=== PATIENT | female | born 1995 | race Caucasian/White ===

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

== ENCOUNTER → 2017-03-05 | Outpatient (CLI) | payer OTHER, MEDICAID ==
[2017-03-05 11:44] LABS: HCT 40.3 % (34.0-46.0); HGB 12.5 gm/dL (11.4-16.0); MCH 26.5 pg (25.0-35.0); MCV 85.6 fL (80.0-100.0); Mean Platelet Volume 7.7; Platelet Count 286 k/uL (150-450); RBC 4.71 m/uL (3.80-5.40); RDW 15.5 % (11.5-15.5)
== END | disposition home or self-care (01) ==
LOC: LABWHC1 10:03
PROVIDERS: ATTEND Obstetrics & Gynecology
DX: Z34.82 Encounter for supervision of other normal pregnancy, second trimester (principal); Z3A.00 Weeks of gestation of pregnancy not specified
CPT/HCPCS: 36415; 82950; 85027

== ENCOUNTER 2017-06-11 06:00 | Inpatient (IN) | payer MEDICAID, OTHER ==
[2017-06-11] MEDS ORDERED: OXYTOCIN 20 UNITS/1000 ML NS 1,000 ML IV SCH ×2 (06:12→21:15)
[2017-06-11] MEDS ORDERED: TERBUTALINE 1 MG/ML VIAL SQ PRN (06:12)
[2017-06-11] MEDS ORDERED: LIDOCAINE 1% (PF) 10 MG/ML (30 ML SDV) SQ PRN (06:12)
[2017-06-11] MEDS ORDERED: OXYTOCIN 10 UNIT/ML 1 ML VIAL IM PRN (06:12)
[2017-06-11] MEDS ORDERED: AMPICILLIN 2,000 MG in SODIUM CHLORIDE 0.9% 100 ML IVPB STA (06:12)
[2017-06-11] MEDS ORDERED: CARBOPROST TROMETHAMINE 250 MCG/ML 1 ML AMP IM PRN (06:12)
[2017-06-11] MEDS ORDERED: METHYLERGONOVINE 0.2 MG/ML 1 ML AMP IM PRN (06:12)
[2017-06-11] MEDS ORDERED: AMPICILLIN 1,000 MG in SODIUM CHLORIDE 0.9% 50 ML IVPB SCH (06:15)
[2017-06-11 06:18] VITALS: BMI 35.9
[2017-06-11] MEDS: LACTATED RINGERS 1,000 ML IV SCH ×3 (06:20→14:05)
[2017-06-11 06:30] LABS: Basophils % (A) 0 %; Eosinophils # (A) 0.1 k/uL (0-0.7); Eosinophils % (A) 1 %; HCT 37.1 % (34.0-46.0); HGB 12.1 gm/dL (11.4-16.0); Hypochromasia Slight; Lymphocytes # (A) 3.5 k/uL (1.0-4.8); Lymphocytes % (A) 22 %; MCH 25.2 pg (25.0-35.0); MCHC 32.7 g/dL (31.0-37.0); MCV 77.3 fL (80.0-100.0); Mean Platelet Volume 7.3; Monocytes # (A) 0.6 k/uL (0-1.0); Monocytes % (A) 4 %; Neutrophils # (A) 11.2 k/uL (1.3-7.7); Neutrophils % (A) 71 %; Platelet Count 335 k/uL (150-450); RBC 4.81 m/uL (3.80-5.40); RDW 13.8 % (11.5-15.5); WBC 15.9 k/uL (4.0-11.0)
--- NOTE | 2017-06-11 08:29 | P.HPOB ---
History of Present Illness H&P Date: 06/11/17 Chief Complaint: Induction of labor 22-year-old presents at 39 weeks and 1 day for induction of labor. Her cervix is 1-2 cm dilated, 70% effaced, -2 station. She is rui regularly. heart tones 115-120 with moderate variability and reactive. Review of Systems All systems: negative Constitutional: Denies chills, Denies fever Eyes: denies blurred vision, denies pain Ears, nose, mouth and throat: Denies headache, Denies sore throat Cardiovascular: Denies chest pain, Denies shortness of breath Respiratory: Denies cough Gastrointestinal: Denies abdominal pain, Denies diarrhea, Denies nausea, Denies vomiting Genitourinary: Denies dysuria, Denies hematuria Musculoskeletal: Denies myalgias Integumentary: Denies pruritus, Denies rash Neurological: Denies numbness, Denies weakness Psychiatric: Denies anxiety, Denies depression Endocrine: Denies fatigue, Denies weight change Past Medical History Past Medical History: No Reported History Additional Past Medical History / Comment(s): Obstetrics history: First was a spontaneous . This is her second and she's had care with me since 10 weeks gestation. Blood type is A+, antibodies negative, rubella immune, HIV nonreactive, hepatitis B negative, treponema antibody negative. Normal 1 hour glucose tolerance test. GBS positive. History of Any Multi-Drug Resistant Organisms: None Reported Past Surgical History: No Surgical Hx Reported Additional Past Surgical History / Comment(s): wisdom removal Past Anesthesia/Blood Transfusion Reactions: No Reported Reaction Past Psychological History: Anxiety, Depression Smoking Status: Former smoker Past Alcohol Use History: None Reported Past Drug Use History: None Reported - Past Family History Father Family Medical History: Diabetes Mellitus Medications and Allergies Home Medications Medication Instructions Recorded Confirmed Type Pnv,Calcium 72/Iron/Folic Acid 1 tab PO DAILY 06/11/17 06/11/17 History [ Plus Tablet] Allergies Allergy/AdvReac Type Severity Reaction Status Date / Time No Known Allergies Allergy Verified 06/11/17 06:10 Exam Osteopathic Statement: *. No significant issues noted on an osteopathic structural exam other than those noted in the History and Physical/Consult. - Vital Signs Vital signs: Vital Signs Temp Pulse Resp BP Pulse Ox 06/11/17 06:13 96.5 F L 105 H 19 137/74 97 Intake and Output 06/10/17 06/11/17 06/11/17 22:59 06:59 14:59 Other: Weight 86.183 kg Heart: Regular rate and rhythm Lungs: Clear to auscultation bilaterally Abdomen: Soft, nontender Extremities: Negative Homans sign Results Result Diagrams: 06/11/17 06:20 Abnormal Lab Results - Last 24 Hours (Table) 06/11/17 Range/Units 06:20 WBC 15.9 H (4.0-11.0) k/uL MCV 77.3 L (80.0-100.0) fL Neutrophils # 11.2 H (1.3-7.7) k/uL Assessment and Plan (1) Normal labor Current Visit: Yes Status: Acute Code(s): O80 - ENCOUNTER FOR FULL-TERM UNCOMPLICATED DELIVERY; Z37.9 - OUTCOME OF DELIVERY, UNSPECIFIED SNOMED Code(s ): 67246319 Plan: 1. Induction of labor with amniotomy and Pitocin 2. Anticipate normal vaginal delivery
[2017-06-11] MEDS ORDERED: BUTORPHANOL 1 MG/ML 1 ML VIAL IV PRN (09:39)
[2017-06-11] MEDS: AMPICILLIN 1,000 MG in SODIUM CHLORIDE 0.9% 50 ML IVPB SCH ×3 (11:03→19:12)
[2017-06-11] MEDS ORDERED: ePHEDrine SULFATE/0.9% NACL/PF 50 MG/5 ML SYRINGE IV ONE (13:35)
[2017-06-11] MEDS ORDERED: SODIUM CHLORIDE 0.9% 100 ML BAG ONE ×2 (13:35→20:28)
[2017-06-11] MEDS ORDERED: BUPIVACAINE (PF) 0.25% 30 ML VIAL ONE ×2 (13:35→20:28)
[2017-06-11] MEDS ORDERED: fentaNYL (PF) 50 MCG/ML 5 ML AMP ONE ×2 (13:35→20:28)
[2017-06-11] MEDS ORDERED: BUPIVACAINE (PF) 0.25% 25 ML, fentaNYL (PF) 200 MCG in SODIUM CHLORIDE 0.9% 71 ML EPIDURAL ONE (14:02)
[2017-06-11] MEDS ORDERED: ceFAZolin IN SWFI 2 GM/20 ML SYRINGE IVP STA (19:53)
[2017-06-11] MEDS ORDERED: CITRIC ACID-SODIUM CITRATE 15 ML CUP PO ONE (19:55)
[2017-06-11] MEDS ORDERED: OXYTOCIN 10 UNIT/ML 1 ML VIAL ONE (20:28)
[2017-06-11] MEDS ORDERED: KETOROLAC 30 MG/ML 1 ML VIAL ONE (20:28)
[2017-06-11] MEDS ORDERED: ONDANSETRON 4 MG/2 ML VIAL ONE (20:28)
[2017-06-11] MEDS ORDERED: METOCLOPRAMIDE 5 MG/ML 2 ML VIAL IVP PRN ×2 (21:06→21:11)
[2017-06-11] MEDS ORDERED: diphenhydrAMINE 25 MG CAP PO PRN (21:06)
[2017-06-11] MEDS ORDERED: NALOXONE 0.4 MG/ML 1 ML VIAL IV PRN ×2 (21:06→21:11)
[2017-06-11] MEDS ORDERED: KETOROLAC 30 MG/ML 1 ML VIAL IVP PRN ×2 (21:06→21:11)
[2017-06-11] MEDS ORDERED: diphenhydrAMINE 50 MG CAP PO PRN (21:06)
[2017-06-11] MEDS ORDERED: SIMETHICONE 80 MG CHEWABLE PO PRN (21:06)
[2017-06-11] MEDS ORDERED: diphenhydrAMINE 50 MG/ML 1 ML VIAL IVP PRN ×3 (21:06→21:11)
[2017-06-11] MEDS ORDERED: ACETAMINOPHEN TAB 325 MG TAB PO PRN (21:06)
[2017-06-11] MEDS ORDERED: LANOLIN CREAM 5 GM TUBE TOPICAL PRN (21:06)
[2017-06-11] MEDS ORDERED: ONDANSETRON 4 MG/2 ML VIAL IVP PRN ×2 (21:06→21:11)
[2017-06-11] MEDS ORDERED: ZOLPIDEM 5 MG TAB PO PRN (21:06)
[2017-06-11] MEDS ORDERED: MORPHINE SULFATE 4MG/4ML SYRG IVP PRN (21:11)
--- NOTE | 2017-06-11 21:13 | P.OP ---
Date of Procedure: 06/11/17 Preoperative Diagnosis: 1. at 39 weeks 1 day 2. failure to progress 3. variable decelerations in the heart rate Postoperative Diagnosis: 1. at 39 weeks 1 day 2. failure to progress 3. variable decelerations in the heart rate Procedure(s) Performed: Primary low transverse Anesthesia: epidural Surgeon: Lee Ann Dennison Screedman #1: Christophe Galvez Estimated Blood Loss (ml): 300 IV fluids (ml): 600 Urine output (ml): 100 Pathology: other (placenta) Condition: stable Disposition: floor Indications for Procedure: 22-year-old G 2 P0 presented at 39 weeks and 1 day for induction of labor. Her cervix was 1-2 cm dilated, 70% effaced, -2 station. Amniotomy was performed at 7:55 AM after Pitocin had been started and she was rui every few minutes. When she was uncomfortable and making cervical change she did get an epidural. She was 5 cm dilated at 3 PM and did not make any further cervical change despite adequate contractions for several hours. Around 7:45 PM her cervix was checked again and still 5 cm, 90% effaced, -2 station. heart tones were showing minimal variability with decelerations in the heart rate down to 60 bpm mirroring contractions with good return to baseline. Informed consent was obtained and section was called. Operative Findings: Viable male, Apgars 9, 9, weight 6 lbs. 5 oz. Normal uterus tubes and ovaries Description of Procedure: Patient was taken to the operating room where epidural anesthesia was found be adequate. She was prepped and draped in normal sterile fashion in dorsal supine position with a leftward tilt. Pfannenstiel skin incision was made the scalpel and carried through to the underlying layer of fascia with the scalpel. Fascia was incised in midline and carried bilaterally with the Murphy scissors. The superior aspect of the fascial incision was grasped with [place] clamps elevated and the underlying rectus muscles dissected off with the Murphy's. Attention was then turned to inferior aspect of same incision which in a similar fashion was grasped tented up and the underlying rectus muscles dissected off with the Murphy's. The rectus muscles were the midline and the peritoneum was identified tented up and entered sharply with the scalpel. The incision was extended superiorly and inferiorly with good visualization of the bladder. The bladder blade was inserted and the vesicouterine peritoneum was incised the Metzenbaums then carried bilaterally and bladder flap created digitally. A low transverse incision was then made on the uterus with the scalpel. This was carried bilaterally and digital manner. Infant's head delivered atraumatically, nose and mouth bulb suctioned, cord clamped and cut, infant handed off to waiting nurses. Apgars 9,9, weight 6 lbs. 5 oz. Placenta delivered manually, intact with three-vessel cord. The uterus is exteriorized and cleared of all clots and debris. The uterine incision was closed with 0 Vicryl in a running locked fashion. Second layer of the same sutures used in imbricating fashion to obtain excellent hemostasis. Bladder flap was then reapproximated using 2-0 Vicryl in a running fashion. Both ovaries and tubes appeared normal. The uterus was placed back into the abdomen. The peritoneum was reapproximated using 2-0 Vicryl in a running fashion. The muscles were reapproximated using 2-0 Vicryl in interrupted fashion. The fascia was reapproximated using 0 Vicryl in a running fashion. The subcutaneous tissues closed with 3-0 Vicryl running fashion. The skin was closed amberly. Patient tolerated the procedure well, sponge and instrument counts were correct times 2 and she was taken to the recovery room in stable condition.
[2017-06-12] MEDS: LACTATED RINGERS 1,000 ML IV SCH ×5 (01:19→20:00)
[2017-06-12 07:26] LABS: Basophils % (A) 0 %; Eosinophils # (A) 0.1 k/uL (0-0.7); Eosinophils % (A) 0 %; HCT 34.7 % (34.0-46.0); Hypochromasia Moderate; Lymphocytes # (A) 2.3 k/uL (1.0-4.8); Lymphocytes % (A) 16 %; MCHC 31.6 g/dL (31.0-37.0); Mean Platelet Volume 8.3; Monocytes # (A) 0.5 k/uL (0-1.0); Monocytes % (A) 4 %; Neutrophils # (A) 11.2 k/uL (1.3-7.7); Neutrophils % (A) 79 %; Platelet Count 265 k/uL (150-450); RBC 4.39 m/uL (3.80-5.40); RDW 14.2 % (11.5-15.5); WBC 14.2 k/uL (4.0-11.0)
[2017-06-12] MEDS: SENNOSIDES-DOCUSATE SODIUM 1 EACH TAB PO SCH ×2 (07:48→20:17)
[2017-06-12] MEDS: HYDROcodone/APAP 7.5-325MG 1 EACH TAB PO PRN ×2 (13:58→20:16)
--- NOTE | 2017-06-12 14:17 | P.PNOBGPC ---
Subjective - Subjective Principal diagnosis: S/P 1*LTCS POD #1 Interval history: Pt seen and examined. Denies N/V, F/C, CP, SOB, calf pain. Patient reports: Reports appetite normal, Reports voiding normally, Reports pain well controlled, Reports ambulating normally [place]: doing well Objective - Vital Signs Latest vital signs: Vital Signs Temp Pulse Resp BP Pulse Ox 06/12/17 14:00 16 06/12/17 12:00 98.2 F 87 16 93/59 06/12/17 10:00 16 06/12/17 08:00 98.7 F 86 16 93/53 06/12/17 06:00 16 06/12/17 04:00 98.2 F 82 16 100/49 06/12/17 02:00 16 06/12/17 00:11 16 06/12/17 00:00 97.3 F L 87 16 102/58 98 06/11/17 23:15 88 16 96/52 06/11/17 22:45 76 16 91/51 06/11/17 22:15 90 16 91/50 97 06/11/17 22:11 16 97 06/11/17 22:00 88 16 103/52 98 06/11/17 21:45 92 16 90/52 97 06/11/17 21:30 93 16 91/54 97 06/11/17 21:15 96.8 F L 105 H 16 92/47 97 06/11/17 21:11 16 97 Intake and Output 06/11/17 06/12/17 06/12/17 22:59 06:59 14:59 Intake Total 50 Output Total 920 700 Balance -920 -650 Intake: IV 50 Invasive Line 1 50 Output: Urine 920 700 Stool 0 Other: Voiding Method Indwelling Catheter Indwelling Catheter # Voids 0 0 # Bowel Movements 0 - Exam Lungs: bilateral: normal Chest: Normal S1, Normal S2 Extremities: Present: normal Abdomen: Present: normal appearance, soft. Absent: distention, tenderness Incision: Present: normal, dry, intact Uterus: Present: normal, firm - Labs Labs: Abnormal Lab Results - Last 24 Hours (Table) 06/12/17 Range/Units 07:11 WBC 14.2 H (4.0-11.0) k/uL Hgb 11.0 L (11.4-16.0) gm/dL MCV 79.0 L (80.0-100.0) fL Neutrophils # 11.2 H (1.3-7.7) k/uL Assessment and Plan (1) Normal labor Current Visit: Yes Status: Resolved Code(s): O80 - ENCOUNTER FOR FULL-TERM UNCOMPLICATED DELIVERY; Z37.9 - OUTCOME OF DELIVERY, UNSPECIFIED SNOMED Code(s ): 87027480 (2) Status post primary low transverse section Current Visit: Yes Status: Acute Code(s): Z98.891 - HISTORY OF UTERINE SCAR FROM PREVIOUS SURGERY SNOMED Code(s): 648992435 Plan: 1. increase ambulation 2. reg diet 3. pain control
[2017-06-12] MEDS: IBUPROFEN 600 MG TAB PO PRN ×2 (17:05→23:25)
[2017-06-13] MEDS: HYDROcodone/APAP 7.5-325MG 1 EACH TAB PO PRN ×3 (01:53→18:18)
[2017-06-13] MEDS: LACTATED RINGERS 1,000 ML IV SCH ×2 (01:57)
[2017-06-13] MEDS: IBUPROFEN 600 MG TAB PO PRN ×3 (05:50→23:25)
--- NOTE | 2017-06-13 08:46 | P.PNOBGPC ---
Subjective - Subjective Principal diagnosis: S/P 1*LTCS POD #2 Interval history: Pt seen and examined. feeling well. Denies nausea, vomiting, chest pain, shortness of breath, calf pain or headache. She did have a bowel movement this morning is feeling much better after that Patient reports: Reports appetite normal, Reports voiding normally, Reports pain well controlled, Reports ambulating normally : doing well Objective - Vital Signs Latest vital signs: Vital Signs Temp Pulse Resp BP Pulse Ox 06/13/17 00:00 98.1 F 72 18 101/67 100 06/12/17 20:00 98.1 F 72 18 115/59 100 06/12/17 16:00 98.2 F 89 18 113/67 98 06/12/17 14:00 16 06/12/17 12:00 98.2 F 87 16 93/59 06/12/17 10:00 16 - Exam Lungs: bilateral: normal Chest: Normal S1, Normal S2 Extremities: Present: normal Abdomen: Present: normal appearance, soft. Absent: distention, tenderness Incision: Present: normal, dry, intact Uterus: Present: normal, firm Assessment and Plan (1) Normal labor Current Visit: Yes Status: Resolved Code(s): O80 - ENCOUNTER FOR FULL-TERM UNCOMPLICATED DELIVERY; Z37.9 - OUTCOME OF DELIVERY, UNSPECIFIED SNOMED Code(s ): 05499826 (2) Status post primary low transverse section Current Visit: Yes Status: Acute Code(s): Z98.891 - HISTORY OF UTERINE SCAR FROM PREVIOUS SURGERY SNOMED Code(s): 531187348 Plan: 1. increase ambulation 2. pain control
[2017-06-13] MEDS: SENNOSIDES-DOCUSATE SODIUM 1 EACH TAB PO SCH ×2 (09:12→20:05)
[2017-06-14 08:23] VITALS: BP 113/66; PULSE 86; RESP 15; TEMP 97.7
--- NOTE | 2017-06-16 08:43 | P.DS ---
Providers Date of admission: 06/11/17 06:06 Expected date of discharge: 06/14/17 Attending physician: Lee Ann Dennison Primary care physician: Senthil Rojo - Discharge Diagnosis(es) (1) Status post primary low transverse section Status: Acute Hospital Course: Patient presented for induction of labor. She underwent a primary low transverse for heart tones and failure to progress. Her course was uncomplicated. She denies nausea, vomiting, chest pain, shortness of breath or calf pain. She'll be discharged home postoperative day # 3 in stable condition to follow-up with me in one week. Patient Condition at Discharge: Stable Plan - Discharge Summary New Discharge Prescriptions: New HYDROcodone/APAP 7.5-325MG [[place] 7.5-325] 1 each PO Q6H PRN #30 tab PRN Reason: Pain Ibuprofen [Motrin] 600 mg PO Q6HR PRN #30 tab PRN Reason: Mild Pain Or Fever >= 100.5 No Action Pnv,Calcium 72/Iron/Folic Acid [ Plus Tablet] 1 tab PO DAILY Discharge Medication List Pnv,Calcium 72/Iron/Folic Acid [ Plus Tablet] 1 tab PO DAILY 06/11/17 [ History] HYDROcodone/APAP 7.5-325MG [[place] 7.5-325] 1 each PO Q6H PRN #30 tab 06/14/17 [ Rx] Ibuprofen [Motrin] 600 mg PO Q6HR PRN #30 tab 06/14/17 [Rx] Follow up Appointment(s)/Referral(s): Lee Ann Dennison DO [Doctor of Osteopathic Medicine] - 1 Week Patient Instructions/Handouts: (DC) Discharge Disposition: HOME SELF-CARE
== END 2017-06-14 12:45 | disposition home or self-care (01) | DRG 766 ==
LOC: 4FBP 06:06
PROVIDERS: ADMIT Obstetrics & Gynecology; ATTEND Obstetrics & Gynecology
PROC: 00HU33Z Insertion of Infusion Device into Spinal Canal, Percutaneous Approach (ICD-10-PCS; 2017-06-11)
PROC: 3E0R3NZ Introduction of Analgesics, Hypnotics, Sedatives into Spinal Canal, Percutaneous Approach (ICD-10-PCS; 2017-06-11)
PROC: 10907ZC Drainage of Amniotic Fluid, Therapeutic from Products of Conception, Via Natural or Artificial Opening (ICD-10-PCS; 2017-06-11)
PROC: 10D00Z1 Extraction of Products of Conception, Low, Open Approach (ICD-10-PCS; principal; 2017-06-11 20:45)
DX: O99.824 Streptococcus B carrier state complicating childbirth (principal); O76 Abnormality in fetal heart rate and rhythm complicating labor and delivery; O62.2 Other uterine inertia; Z37.0 Single live birth; Z3A.39 39 weeks gestation of pregnancy; Z83.3 Family history of diabetes mellitus; Z87.891 Personal history of nicotine dependence; Z86.59 Personal history of other mental and behavioral disorders
CPT/HCPCS: 85025; 88307

== ENCOUNTER 2018-10-17 00:07 | Emergency (ER) | payer OTHER, MEDICAID ==
[2018-10-17 00:32] VITALS: BP 137/80; PULSE 82; RESP 18; TEMP 98
--- NOTE | 2018-10-17 00:34 | ED ---
Skin/Abscess/FB HPI - General Chief complaint: Skin/Abscess/Foreign Body Stated complaint: ring stuck on finger/swelling Time Seen by Provider: 10/17/18 00:32 Source: patient Mode of arrival: ambulatory Limitations: no limitations - History of Present Illness Initial comments: 23-year-old female patient presents to the emergency department today for a re evaluation and assistance in getting a ring off of her finger. Patient states that she developed some finger swelling today and started to have discomfort due to her ring being too tight. She denies swelling to other parts of her body. Denies any other concerns. Denies numbness or tingling to her finger. - Related Data Home Medications Medication Instructions Recorded Confirmed Pnv,Calcium 72/Iron/Folic Acid 1 tab PO DAILY 06/11/17 06/11/17 [ Plus Tablet] Previous Rx's Medication Instructions Recorded HYDROcodone/APAP 7.5-325MG [[place] 1 each PO Q6H PRN #30 tab 06/14/17 7.5-325] Ibuprofen [Motrin] 600 mg PO Q6HR PRN #30 tab 06/14/17 Allergies Allergy/AdvReac Type Severity Reaction Status Date / Time No Known Allergies Allergy Verified 06/11/17 06:10 Review of Systems ROS Statement: Those systems with pertinent positive or pertinent negative responses have been documented in the HPI. ROS Other: All systems not noted in ROS Statement are negative. Past Medical History Past Medical History: No Reported History Additional Past Medical History / Comment(s): Obstetrics history: First was a spontaneous . This is her second and she's had care with me since 10 weeks gestation. Blood type is A+, antibodies negative, rubella immune, HIV nonreactive, hepatitis B negative, treponema antibody negative. Normal 1 hour glucose tolerance test. GBS positive. History of Any Multi-Drug Resistant Organisms: None Reported Past Surgical History: Section Additional Past Surgical History / Comment(s): wisdom removal Past Anesthesia/Blood Transfusion Reactions: No Reported Reaction Past Psychological History: Anxiety, Depression Smoking Status: Former smoker Past Alcohol Use History: None Reported Past Drug Use History: None Reported - Past Family History Father Family Medical History: Diabetes Mellitus General Exam Limitations: no limitations General appearance: alert, in no apparent distress, other (Physical well- developed, well-nourished adult female patient in no acute distress. Vital signs upon presentation are temperature 98.0F, pulse 82, respirations 18, blood pressure 137/80, pulse ox 100% on room air.) Respiratory exam: Present: normal lung sounds bilaterally. Absent: respiratory distress, wheezes, rales, rhonchi, stridor Cardiovascular Exam: Present: regular rate, normal rhythm, normal heart sounds. Absent: systolic murmur, diastolic murmur, rubs, gallop, clicks Extremities exam: Present: full ROM, normal capillary refill, other (Patient exhibits left ring finger swelling. Skin is pink, warm, dry. Cap refills less than 3 seconds.). Absent: normal inspection, tenderness, pedal edema, joint swelling, calf tenderness Neurological exam: Present: alert, oriented X3, CN II-XII intact Psychiatric exam: Present: normal affect, normal mood Skin exam: Present: warm, dry, intact, normal color. Absent: rash Course Vital Signs 10/17/18 00:30 Temperature 98.0 F Pulse Rate 82 Respiratory 18 Rate Blood Pressure 137/80 O2 Sat by Pulse 100 Oximetry Medical Decision Making - Medical Decision Making 23-year-old female patient presented to the emergency department today for evaluation due to being unable to get her ring off of her left ring finger. There is some mild swelling to the finger noted. Ring was removed utilizing the string technique. Patient tolerated this well. Neurovascular status intact to the finger. She'll be discharged to follow-up with her doctor as needed. Return parameters discussed in detail patient verbalizes understanding and agrees with this plan. Disposition Clinical Impression: Finger swelling Disposition: HOME SELF-CARE Condition: Good Instructions (If sedation given, give patient instructions): Edema (ED) Additional Instructions: Avoid wearing the reading until resized. Follow-up with your doctor as planned. Return to the emergency department for any new, worsening, or concerning symptoms. Is patient prescribed a controlled substance at d/c from ED?: No Referrals: Senthil Rojo Jr, DO [Primary Care Provider] - 1-2 days Time of Disposition: 00:33
== END 2018-10-17 00:49 | disposition home or self-care (01) ==
LOC: EC 00:07
DX: M79.89 Other specified soft tissue disorders (principal); Z87.891 Personal history of nicotine dependence
CPT/HCPCS: 99283

== ENCOUNTER 2018-10-25 11:46 | Emergency (ER) | payer OTHER, MEDICAID ==
[2018-10-25 11:59] VITALS: BP 125/80; PULSE 91; RESP 18; TEMP 98.5
[2018-10-25] MEDS ORDERED: METOCLOPRAMIDE 5 MG/ML 2 ML VIAL IVP STA (12:28)
[2018-10-25] MEDS ORDERED: SODIUM CHLORIDE 0.9% 1,000 ML IV STA ×2 (12:28)
[2018-10-25 13:28] LABS: Appearance,Urine Clear (Clear); Bilirubin,Urine Negative (Negative); Blood,Urine Negative (Negative); Color,Urine Yellow; Glucose,Urine (UA) Negative (Negative); Ketones,Urine Trace (Negative); Leukocyte Esterase,Urine Negative (Negative); Nitrite,Urine Negative (Negative); Protein,Urine Trace (Negative); Specific Gravity,Urine 1.024 (1.001-1.035); Urobilinogen,Urine <2.0 mg/dL (<2.0)
[2018-10-25 13:37] LABS: INR 0.9 (<1.2); Partial Thromboplastin Time 27.3 sec (22.0-30.0)
--- NOTE | 2018-10-25 13:39 | US ---
EXAMINATION TYPE: Transabdominal DATE OF EXAM: 10/25/2018 1:23 PM COMPARISON: NONE CLINICAL HISTORY: Pain. 1 episode of vomiting blood, patient states no pelvic pain or bleeding, gravi da 4, para 1, miscarriage 2 EXAM PERFORMED: Transabdominal (TA) EXAM MEASUREMENTS: GESTATIONAL AGE / DATING Physician Established: Not established yet Dates by LMP: Unknown Dates by First Scan: This is 1st scan Dates by Current Scan for: (9 weeks/3 days) EDC: 05/27/2019 MATERNAL ANATOMY Uterus: 9.5 x 3.9 x 8.2cm, anteverted Right Ovary: 3.0 x 1.5 x 1.5cm Left Ovary: 2.8 x 1.8 x 1.8cm Post CDS / Adnexa: wnl Presence of free fluid: no Presence of corpus luteal cyst: not seen at this time Presence of subchorionic bleed: no GESTATION / SURVEY CRL: 2.6cm (9 weeks/3 days) Yolk Sac (normal less than 6mm): 4.6mm Heart Rate: 165 bpm Rhythm: Normal IUP: Viable IUP Date of LMP: Unknown Beta HcG (if available): Not available at time of exam Single live intrauterine gestation is identified as gestational sac, yolk sac, and pole are see n. No free fluid in pelvic cul-de-sac. Both ovaries are seen. No suspicious extra ovarian adnexal masses. IMPRESSION: Confirmation of single live intrauterine gestation, mean crown-rump length is 2.6 cm sunil esponding to 9 week 3 day old fetus.
[2018-10-25 13:41] LABS: Basophils # (A) 0.1 k/uL (0-0.2); Basophils % (A) 1 %; Eosinophils # (A) 0.3 k/uL (0-0.7); Eosinophils % (A) 2 %; HCT 46.5 % (34.0-46.0); HGB 14.8 gm/dL (11.4-16.0); Lymphocytes % (A) 21 %; MCH 25.4 pg (25.0-35.0); MCHC 31.9 g/dL (31.0-37.0); MCV 79.8 fL (80.0-100.0); Mean Platelet Volume 7.9; Monocytes # (A) 0.6 k/uL (0-1.0); Monocytes % (A) 4 %; Neutrophils % (A) 71 %; Platelet Count 323 k/uL (150-450); RBC 5.83 m/uL (3.80-5.40); RDW 15.7 % (11.5-15.5); WBC 14.2 k/uL (3.8-10.6)
[2018-10-25 13:43] LABS: ALT 27 U/L (9-52); AST 28 U/L (14-36); African American GFR (CKD) >90 (>60 ml/min/1.73 sqM); Albumin 4.2 g/dL (3.5-5.0); Alkaline Phosphatase 118 U/L (38-126); Amylase 42 U/L (30-110); Anion Gap 8 mmol/L; Blood Urea Nitrogen 10 mg/dL (7-17); Calcium 9.8 mg/dL (8.4-10.2); Carbon Dioxide 25 mmol/L (22-30); Chloride 106 mmol/L (98-107); Glucose 72 mg/dL (74-99); Potassium 4.2 mmol/L (3.5-5.1); Sodium 139 mmol/L (137-145); Total Bilirubin 0.3 mg/dL (0.2-1.3); Total Protein 7.4 g/dL (6.3-8.2)
--- NOTE | 2018-10-25 14:13 | ED ---
General Adult HPI - General Chief complaint: Nausea/Vomiting/Diarrhea Stated complaint: hematemesis, preg unknown dates Time Seen by Provider: 10/25/18 12:08 Source: patient, RN notes reviewed, old records reviewed Mode of arrival: ambulatory Limitations: no limitations - History of Present Illness Initial comments: is 23-year-old female presents emergency department today with 1 episode of vomiting after taking vitamins. She reports that she had a positive test 2 weeks ago. She is on all for a long she has. She is a female. Patient's [employer] is Dr. Dennison. Chest and appointment next week. She hasn't of vaginal bleeding or discharge. - Related Data Home Medications Medication Instructions Recorded Confirmed Pnv,Calcium 72/Iron/Folic Acid 1 tab PO DAILY 06/11/17 06/11/17 [ Plus Tablet] Previous Rx's Medication Instructions Recorded HYDROcodone/APAP 7.5-325MG [[place] 1 each PO Q6H PRN #30 tab 06/14/17 7.5-325] Ibuprofen [Motrin] 600 mg PO Q6HR PRN #30 tab 06/14/17 Metoclopramide [Reglan] 10 mg PO ACHS #10 tab 10/25/18 Allergies Allergy/AdvReac Type Severity Reaction Status Date / Time No Known Allergies Allergy Verified 10/25/18 11:59 Review of Systems ROS Statement: Those systems with pertinent positive or pertinent negative responses have been documented in the HPI. ROS Other: All systems not noted in ROS Statement are negative. Past Medical History Past Medical History: No Reported History Additional Past Medical History / Comment(s): Obstetrics history: First was a spontaneous . This is her second and she's had care with me since 10 weeks gestation. Blood type is A+, antibodies negative, rubella immune, HIV nonreactive, hepatitis B negative, treponema antibody negative. Normal 1 hour glucose tolerance test. GBS positive. History of Any Multi-Drug Resistant Organisms: None Reported Past Surgical History: Section Additional Past Surgical History / Comment(s): wisdom removal Past Anesthesia/Blood Transfusion Reactions: No Reported Reaction Past Psychological History: Anxiety, Depression Smoking Status: Former smoker Past Alcohol Use History: None Reported Past Drug Use History: None Reported - Past Family History Father Family Medical History: Diabetes Mellitus General Exam - General Exam Comments Initial Comments: 23 year old female, no distress. Limitations: no limitations General appearance: alert, in no apparent distress Head exam: Present: atraumatic, normocephalic, normal inspection Eye exam: Present: normal appearance, PERRL, EOMI. Absent: scleral icterus, conjunctival injection, periorbital swelling ENT exam: Present: normal exam, mucous membranes moist Neck exam: Present: normal inspection. Absent: tenderness, meningismus, lymphadenopathy Respiratory exam: Present: normal lung sounds bilaterally. Absent: respiratory distress, wheezes, rales, rhonchi, stridor Cardiovascular Exam: Present: regular rate, normal rhythm, normal heart sounds. Absent: systolic murmur, diastolic murmur, rubs, gallop, clicks GI/Abdominal exam: Present: soft, normal bowel sounds. Absent: distended, tenderness, guarding, rebound, rigid Extremities exam: Present: normal inspection, full ROM, normal capillary refill. Absent: tenderness, pedal edema, joint swelling, calf tenderness Back exam: Present: normal inspection Neurological exam: Present: alert, oriented X3, CN II-XII intact Psychiatric exam: Present: normal affect Skin exam: Present: warm, dry, intact, normal color. Absent: rash Course Vital Signs 10/25/18 11:57 Temperature 98.5 F Pulse Rate 91 Respiratory 18 Rate Blood Pressure 125/80 O2 Sat by Pulse 99 Oximetry Medical Decision Making - Medical Decision Making 23 year old femtay, presents with vomiting. Recently found out she is . She is concernd with small amount of blood in vomiting. Patient has normal labs, given reglan, and US is positive for 9 week IUP. Patient feels better after fluids and close PCP and OB follow up. - Lab Data Result diagrams: 10/25/18 12:35 10/25/18 12:35 Lab Results 10/25/18 10/25/18 10/25/18 Range/Units 12:35 12:35 12:35 WBC 14.2 H (3.8-10.6) k/uL RBC 5.83 H (3.80-5.40) m/uL Hgb 14.8 (11.4-16.0) gm/dL Hct 46.5 H (34.0-46.0) % MCV 79.8 L (80.0-100.0) fL MCH 25.4 (25.0-35.0) pg MCHC 31.9 (31.0-37.0) g/dL RDW 15.7 H (11.5-15.5) % Plt Count 323 (150-450) k/uL Neutrophils % 71 % Lymphocytes % 21 % Monocytes % 4 % Eosinophils % 2 % Basophils % 1 % Neutrophils # 10.0 H (1.3-7.7) k/uL Lymphocytes # 3.0 (1.0-4.8) k/uL Monocytes # 0.6 (0-1.0) k/uL Eosinophils # 0.3 (0-0.7) k/uL Basophils # 0.1 (0-0.2) k/uL PT (9.0-12.0) sec INR (<1.2) APTT (22.0-30.0) sec Sodium 139 (137-145) mmol/L Potassium 4.2 (3.5-5.1) mmol/L Chloride 106 (98-107) mmol/L Carbon Dioxide 25 (22-30) mmol/L Anion Gap 8 mmol/L BUN 10 (7-17) mg/dL Creatinine 0.61 (0.52-1.04) mg/dL Est GFR (CKD-EPI)AfAm >90 (>60 ml/min/1.73 sqM) Est GFR (CKD-EPI)NonAf >90 (>60 ml/min/1.73 sqM) Glucose 72 L (74-99) mg/dL Calcium 9.8 (8.4-10.2) mg/dL Total Bilirubin 0.3 (0.2-1.3) mg/dL AST 28 (14-36) U/L ALT 27 (9-52) U/L Alkaline Phosphatase 118 (38-126) U/L Total Protein 7.4 (6.3-8.2) g/dL Albumin 4.2 (3.5-5.0) g/dL Amylase 42 (30-110) U/L Lipase 62 (23-300) U/L HCG, Quant 107660.0 mIU/mL Urine Color Urine Appearance (Clear) Urine pH (5.0-8.0) Ur Specific [place] (1.001-1.035) Urine Protein (Negative) Urine Glucose (UA) (Negative) Urine Ketones (Negative) Urine Blood (Negative) Urine Nitrite (Negative) Urine Bilirubin (Negative) Urine Urobilinogen (<2.0) mg/dL Ur Leukocyte Esterase (Negative) Blood Type A Positive Blood Type Recheck No 10/25/18 10/25/18 Range/Units 12:35 12:44 WBC (3.8-10.6) k/uL RBC (3.80-5.40) m/uL Hgb (11.4-16.0) gm/dL Hct (34.0-46.0) % MCV (80.0-100.0) fL MCH (25.0-35.0) pg MCHC (31.0-37.0) g/dL RDW (11.5-15.5) % Plt Count (150-450) k/uL Neutrophils % % Lymphocytes % % Monocytes % % Eosinophils % % Basophils % % Neutrophils # (1.3-7.7) k/uL Lymphocytes # (1.0-4.8) k/uL Monocytes # (0-1.0) k/uL Eosinophils # (0-0.7) k/uL Basophils # (0-0.2) k/uL PT 10.0 (9.0-12.0) sec INR 0.9 (<1.2) APTT 27.3 (22.0-30.0) sec Sodium (137-145) mmol/L Potassium (3.5-5.1) mmol/L Chloride (98-107) mmol/L Carbon Dioxide (22-30) mmol/L Anion Gap mmol/L BUN (7-17) mg/dL Creatinine (0.52-1.04) mg/dL Est GFR (CKD-EPI)AfAm (>60 ml/min/1.73 sqM) Est GFR (CKD-EPI)NonAf (>60 ml/min/1.73 sqM) Glucose (74-99) mg/dL Calcium (8.4-10.2) mg/dL Total Bilirubin (0.2-1.3) mg/dL AST (14-36) U/L ALT (9-52) U/L Alkaline Phosphatase (38-126) U/L Total Protein (6.3-8.2) g/dL Albumin (3.5-5.0) g/dL Amylase (30-110) U/L Lipase (23-300) U/L HCG, Quant mIU/mL Urine Color Yellow Urine Appearance Clear (Clear) Urine pH 7.0 (5.0-8.0) Ur Specific [place] 1.024 (1.001-1.035) Urine Protein Trace H (Negative) Urine Glucose (UA) Negative (Negative) Urine Ketones Trace H (Negative) Urine Blood Negative (Negative) Urine Nitrite Negative (Negative) Urine Bilirubin Negative (Negative) Urine Urobilinogen <2.0 (<2.0) mg/dL Ur Leukocyte Esterase Negative (Negative) Blood Type Blood Type Recheck - Radiology Data Radiology results: report reviewed US shows viable IUP 9 weeks. Disposition Clinical Impression: 9 weeks gestation of , Nausea & vomiting Disposition: HOME SELF-CARE Condition: Good Instructions (If sedation given, give patient instructions): Acute Nausea and Vomiting (ED) Additional Instructions: Follow-up with your primary care physician. Return to emergency department if any alarming signs or symptoms occur. Prescriptions: Metoclopramide [Reglan] 10 mg PO ACHS #10 tab Is patient prescribed a controlled substance at d/c from ED?: No Referrals: Senthil Rojo Jr, DO [Primary Care Provider] - 1-2 days Time of Disposition: 14:38
== END 2018-10-25 14:53 | disposition home or self-care (01) ==
LOC: EC 11:46
DX: O99.611 Diseases of the digestive system complicating pregnancy, first trimester (principal); K92.0 Hematemesis; O99.89 Other specified diseases and conditions complicating pregnancy, childbirth and the puerperium; R19.7 Diarrhea, unspecified; Z87.891 Personal history of nicotine dependence; Z3A.09 9 weeks gestation of pregnancy
CPT/HCPCS: 99284; 96374; 96361 ×2; 36415; 86900; 86901; 80053; 82150; 83690; 85025; 85610; 85730; 81003; 84702; 76801; J2765

== ENCOUNTER → 2018-11-12 | Outpatient (CLI) | payer OTHER, MEDICAID ==
[2018-11-12 14:23] LABS: HCT 43.3 % (34.0-46.0); HGB 14.2 gm/dL (11.4-16.0); MCH 26.3 pg (25.0-35.0); MCHC 32.8 g/dL (31.0-37.0); MCV 80.1 fL (80.0-100.0); Mean Platelet Volume 7.8; Platelet Count 305 k/uL (150-450); RDW 15.6 % (11.5-15.5); WBC 12.1 k/uL (3.8-10.6)
[2018-11-12 19:05] LABS: African American GFR (CKD) 143.5 (60.0-200.0)
[2018-11-12 20:58] LABS: HIV 1 AB Non-Reactive (Non-Reactive); HIV AB P24 Non-Reactive (Non-Reactive); HIV P24 AG Non-Reactive (Non-Reactive)
== END | disposition home or self-care (01) ==
LOC: LABWHC1 13:38
PROVIDERS: ATTEND Obstetrics & Gynecology
DX: Z34.80 Encounter for supervision of other normal pregnancy, unspecified trimester (principal)
CPT/HCPCS: 36415; 82565; 82947; 85027; 86762; 86780; 86850; 86900; 86901; 87340; 87390

== ENCOUNTER → 2019-02-04 | Outpatient (CLI) | payer OTHER, MEDICAID ==
[2019-02-04 11:59] LABS: HCT 38.4 % (34.0-46.0); HGB 12.7 gm/dL (11.4-16.0); MCH 26.9 pg (25.0-35.0); MCV 81.5 fL (80.0-100.0); Mean Platelet Volume 6.6; Platelet Count 321 k/uL (150-450); RBC 4.71 m/uL (3.80-5.40); RDW 13.9 % (11.5-15.5); WBC 14.7 k/uL (3.8-10.6)
== END ==
LOC: LABWHC1 10:14
PROVIDERS: ATTEND Obstetrics & Gynecology
DX: Z34.82 Encounter for supervision of other normal pregnancy, second trimester (principal); Z3A.00 Weeks of gestation of pregnancy not specified
CPT/HCPCS: 36415; 82950; 85027

== ENCOUNTER 2019-03-08 20:06 | Outpatient (CLI) | payer OTHER, MEDICAID ==
[2019-03-08 21:01] VITALS: BP 126/70; PULSE 108; RESP 16; TEMP 97.1
--- NOTE | 2019-03-10 08:29 | P.MSEPDOC ---
Presenting Problems - Arrival Data Date of Arrival on Unit: 03/08/19 Time of Arrival on Unit: 20:06 Mode of Transport: Ambulatory - Complaint OB-Reason for Admission/Chief Complaint: Decreased Movement Medical History - Information : 3 Para: 1 Term: 1 : 0 Abortions: Spontaneous or Elective: 1 Number of Living Children: 1 - Gestational Age Gestational Age by KRISHAN (wks/days): 28 Weeks and 4 Days - History Complications: Prior Review of Systems - Review of Systems Constitutional: No problems Breast: No problems ENT: No problems Cardiovascular: No problems Respiratory: No problems Gastrointestinal: No problems Genitourinary: No problems Musculoskeletal: No problems Neurological: No problems Skin: No problems Vital Signs - Temperature Temperature: 97.1 F Temperature Source: Temporal Artery Scan - Pulse Right Pulse Rate: 108 Pulse Assessment Method: Pulse Oximetry - Respirations Respiratory Rate: 16 Oxygen Delivery Method: Room Air O2 Sat by Pulse Oximetry: 99 - Blood Pressure Right Arm Blood Pressure: 126/70 Blood Pressure Mean: 88 Blood Pressure Source: Automatic Cuff Medical Screen Scoring (Pre) - Cervical Exam Dilation: Exam Deferred Effacement: Exam Deferred - Uterine Contractions Frequency: N/A Duration: N/A Intensity: N/A - Maternal Vital Signs Maternal Temperature: N/A Maternal Blood Pressure: N/A Signs of Preeclampsia: N/A Maternal Respirations: N/A - Maternal Trauma Maternal Trauma: N/A - Assessment - Baby A Baseline FHR: 140 Heart Rate - NICHD Category: Category I (Normal) = 0 NST: Reactive Position: N/A Station: N/A - Total Score - Baby A Total Score - Baby A: 0 - Total Score - Baby B Total Score - Baby B: 0 - Total Score - Baby C Total Score - Baby C: 0 - Level of Risk - Baby A Level of Risk - Baby A: Low (0-5) - Level of Risk - Baby B Level of Risk - Baby B: Low (0-5) - Level of Risk - Baby C Level of Risk - Baby C: Low (0-5) - Pain Assessment Pain Scale Used: Numeric (1 - 10) Pain Intensity: 0 Physician Notification (Pre) - Physician Notified Physician Notified Date: 03/08/19 Physician Notified Time: 20:37 - Notification Comment Comment: Dr Santana called back. reported on pts c/o, hx, vitals, reactive NST, no cntrx. noted, no difficulty breathing noted, pt in no distress. Orders to d/c home with. instructions, keep scheduled appt in office, return with new or worsening sx. Disposition - Disposition OB Disposition: Discharge to home Discharge Date: 03/08/19 Discharge Time: 20:50 I agree with the RN Medical Screening Exam: Yes Risk & Benefit of care provided described in d/c instruction: Yes Diagnosis: DECREASED MOVEMENTS, THIRD TRIMESTER, UNSP
== END 2019-03-08 20:50 | disposition home or self-care (01) ==
LOC: FBPOP 20:06
PROVIDERS: ATTEND Obstetrics & Gynecology
DX: O36.8130 Decreased fetal movements, third trimester, not applicable or unspecified (principal); Z3A.28 28 weeks gestation of pregnancy
CPT/HCPCS: 59025; 99213

== ENCOUNTER 2019-04-06 23:06 | Outpatient (CLI) | payer OTHER, MEDICAID ==
[2019-04-06 23:52] VITALS: BP 135/61; PULSE 94; RESP 18; TEMP 97.2
--- NOTE | 2019-04-07 06:47 | P.MSEPDOC ---
Presenting Problems - Arrival Data Date of Arrival on Unit: 04/06/19 Time of Arrival on Unit: 23:06 Mode of Transport: Ambulatory - Complaint OB-Reason for Admission/Chief Complaint: Pain Comment: pain 4/10 lower abdominal and shooting vaginal as well as rib pain that has been ongoing for "awhile" but pt states got worse yesterday. Medical History - Information : 3 Para: 1 Term: 1 : 0 Abortions: Spontaneous or Elective: 0 Number of Living Children: 1 - Gestational Age Gestational Age by KRISHAN (wks/days): 32 Weeks and 5 Days - History Complications: Prior Review of Systems - Review of Systems Constitutional: No problems Breast: No problems ENT: No problems Cardiovascular: No problems Respiratory: No problems Gastrointestinal: No problems Genitourinary: No problems Musculoskeletal: No problems Neurological: No problems Skin: No problems Vital Signs - Temperature Temperature: 97.2 F Temperature Source: Temporal Artery Scan - Pulse Right Pulse Oximetery Pulse Rate: 94 Pulse Assessment Method: Pulse Oximetry - Respirations Respiratory Rate: 18 Oxygen Delivery Method: Room Air O2 Sat by Pulse Oximetry: 96 - Blood Pressure Right Arm Blood Pressure: 135/61 Blood Pressure Mean: 85 Blood Pressure Source: Automatic Cuff Medical Screen Scoring (Pre) - Cervical Exam Dilation: 0 cm = 0 Membranes: Intact - Uterine Contractions Frequency: N/A Duration: N/A Intensity: N/A - Maternal Vital Signs Maternal Temperature: N/A Maternal Blood Pressure: N/A Signs of Preeclampsia: N/A Maternal Respirations: N/A - Maternal Trauma Maternal Trauma: N/A - Assessment - Baby A Baseline FHR: 140 Heart Rate - NICHD Category: Category I (Normal) = 0 NST: Reactive Position: N/A Station: N/A - Total Score - Baby A Total Score - Baby A: 0 - Total Score - Baby B Total Score - Baby B: 0 - Total Score - Baby C Total Score - Baby C: 0 - Level of Risk - Baby A Level of Risk - Baby A: Low (0-5) - Level of Risk - Baby B Level of Risk - Baby B: Low (0-5) - Level of Risk - Baby C Level of Risk - Baby C: Low (0-5) Physician Notification (Pre) - Physician Notified Physician Notified Date: 04/06/19 Physician Notified Time: 23:31 New Order Received: Yes (order to check pts cervix, if closed, pt may be discharged.) Disposition - Disposition OB Disposition: Discharge to home Discharge Date: 04/06/19 Discharge Time: 23:45 I agree with the RN Medical Screening Exam: Yes Risk & Benefit of care provided described in d/c instruction: Yes Diagnosis: FALSE LABOR BEFORE 37 COMPLETED WEEKS OF GEST, THIRD TRI (Patient presented to labor and delivery with complaints of rib pain and vaginal pain which she states she's had for quite a while. heart monitoring shows a category 1. There are no regular contractions and no evidence of labor. This appears to be normal discomfort of . Patient however was instructed to discuss this with her physician next appointment and return if she had any other concerns.)
== END 2019-04-06 23:45 | disposition home or self-care (01) ==
LOC: FBPOP 23:06
PROVIDERS: ATTEND Obstetrics & Gynecology
DX: O47.03 False labor before 37 completed weeks of gestation, third trimester (principal); Z3A.32 32 weeks gestation of pregnancy
CPT/HCPCS: 59025; 99213

== ENCOUNTER 2019-04-14 14:09 | Outpatient (CLI) | payer OTHER, MEDICAID ==
--- NOTE | 2019-04-14 15:19 | US ---
EXAMINATION TYPE: US OB BPP wo non-stress DATE OF EXAM: 04/14/2019 COMPARISON: NONE CLINICAL HISTORY: tachycardia. tachycardia EXAM PERFORMED: Transabdominal (TA) BPP PARAMETERS: HEART RATE: 212 bpm RHYTHM: Normal KEVIN: 10.2cm DIAPHRAGM IMAGED: yes BPP SCORIN. Breathin (1 episode of breathing of 30 second duration in 30 minutes of scanning time) 2. Movement: 2 (at least 3 discrete body movements in 30 minutes) 3. Tone: 2 (1 episode of active flexion/extension of limb) 4. KEVIN: 2 (KEVIN index > 5cm) TOTAL SCORE: 8 / 8. tachycardia is confirmed with a heart rate varying from 206 through 212 during the examination. A Yellow level critical message alert has been initiated for Lee Ann Dennison DO via the [employer] Critical Results System on 04/14/2019 3:16 PM. This message alert has been sent to Lee Ann rm DO via the preferences provided by the clinician for the receipt of Radiology Critical Findings. Message ID [id number].
[2019-04-14 16:35] VITALS: BP 120/63; PULSE 113; RESP 16; TEMP 97.1
--- NOTE | 2019-05-14 22:08 | P.MSEPDOC ---
Presenting Problems - Arrival Data Date of Arrival on Unit: 04/14/19 Time of Arrival on Unit: 14:09 Mode of Transport: Portable - Complaint OB-Reason for Admission/Chief Complaint: Other Comment: tachycardia Medical History - Information : 3 Para: 1 Term: 1 : 0 Abortions: Spontaneous or Elective: 0 Number of Living Children: 1 - Gestational Age Gestational Age by KRISHAN (wks/days): 33 Weeks and 6 Days Review of Systems - Review of Systems Constitutional: No problems Breast: No problems ENT: No problems Cardiovascular: No problems Respiratory: No problems Gastrointestinal: No problems Genitourinary: No problems Musculoskeletal: No problems Neurological: No problems Skin: No problems Vital Signs - Temperature Temperature: 97.1 F Temperature Source: Temporal Artery Scan - Pulse Right Pulse Rate: 113 Pulse Assessment Method: Automatic Cuff - Respirations Respiratory Rate: 16 Oxygen Delivery Method: Room Air O2 Sat by Pulse Oximetry: 98 - Blood Pressure Right Arm Blood Pressure: 120/63 Blood Pressure Mean: 82 Blood Pressure Source: Automatic Cuff Medical Screen Scoring (Pre) - Cervical Exam Dilation: Exam Deferred Effacement: Exam Deferred Membranes: Intact - Uterine Contractions Frequency: N/A Duration: N/A Intensity: N/A - Maternal Vital Signs Maternal Temperature: N/A Signs of Preeclampsia: N/A Maternal Respirations: N/A - Maternal Trauma Maternal Trauma: N/A - Assessment - Baby A Baseline FHR: 190 Heart Rate - NICHD Category: Category II (Indeterminate) = 3 NST: Non-reactive = 3 Position: N/A Station: N/A - Total Score - Baby A Total Score - Baby A: 6 - Total Score - Baby B Total Score - Baby B: 0 - Total Score - Baby C Total Score - Baby C: 0 - Level of Risk - Baby A Level of Risk - Baby A: Medium (6-9) - Level of Risk - Baby B Level of Risk - Baby B: Low (0-5) - Level of Risk - Baby C Level of Risk - Baby C: Low (0-5) Physician Notification (Pre) - Physician Notified Physician Notified Date: 04/14/19 Physician Notified Time: 15:05 New Order Received: Yes (Pt to be transferred to [place], Dr Dennison coming to talk to pt) Disposition - Disposition OB Disposition: Transfer to other dept./facility Discharge Date: 04/14/19 Discharge Time: 16:23 I agree with the RN Medical Screening Exam: Yes Risk & Benefit of care provided described in d/c instruction: Yes Diagnosis: MATERN CARE FOR ABNLT FETL HRT RATE OR RHYM, UNSP TRI, UNSP
== END 2019-04-14 16:25 ==
LOC: FBPOP 14:09
PROVIDERS: ATTEND Obstetrics & Gynecology
DX: O76 Abnormality in fetal heart rate and rhythm complicating labor and delivery (principal); Z3A.00 Weeks of gestation of pregnancy not specified
CPT/HCPCS: 59025; 76819; 99213

== ENCOUNTER 2020-10-19 | Outpatient (CLI) | payer OTHER, MEDICAID ==
[2020-10-19 01:06] LABS: Appearance,Urine Clear (Clear); Bacteria,Urine Rare /hpf; Bilirubin,Urine Negative (Negative); Blood,Urine Negative (Negative); Color,Urine Yellow; Glucose,Urine (UA) Negative (Negative); Ketones,Urine Negative (Negative); Leukocyte Esterase,Urine Moderate (Negative); Mucus,Urine Rare /hpf; Nitrite,Urine Negative (Negative); Protein,Urine Negative (Negative); RBC,Urine <1 /hpf (0-5); Specific Gravity,Urine 1.017 (1.001-1.035); Squamous Epithelial Cell,Urine 3 /hpf (0-4); Urobilinogen,Urine <2.0 mg/dL (<2.0); WBC,Urine 3 /hpf (0-5)
[2020-10-19 01:59] VITALS: BP 137/72; PULSE 97; RESP 16; TEMP 96.6
--- NOTE | 2020-10-27 12:23 | P.MSEPDOC ---
Presenting Problems - Arrival Data Date of Arrival on Unit: 10/19/20 Time of Arrival on Unit: 00:00 Mode of Transport: Wheelchair - Complaint OB-Reason for Admission/Chief Complaint: Pain Comment: Patient presents to triage with pressure that started around 1600. States she. is not sure if she is having contractions, "because this does not feel like. contractions," but that she has been having back pain intermittently since around 1600. as well. patient is unsure how far apart the pain is coming. Patient denies vaginal. bleeding or leaking of fluid. denies intercourse in the last 24 hours. Medical History - Information : 4 Para: 1 Term: 1 : 1 Abortions: Spontaneous or Elective: 1 Number of Living Children: 2 - Gestational Age Gestational Age by KRISHAN (wks/days): 39 Weeks and 3 Days - History Complications: Prior , Prior Comment: Patient states her first delivery was a because she "didn't dilate past 5 cm" states her second was a 34 week vaginal delivery. Patient's plan is to V-[facility]armaine this . Review of Systems - Review of Systems Constitutional: No problems Breast: No problems ENT: No problems Cardiovascular: No problems Respiratory: No problems Gastrointestinal: No problems Genitourinary: No problems Musculoskeletal: No problems Neurological: No problems Skin: No problems Vital Signs - Temperature Temperature: 96.6 F Temperature Source: Temporal Artery Scan - Pulse Pulse Oximetery Pulse Rate: 97 Pulse Assessment Method: Pulse Oximetry - Respirations Respiratory Rate: 16 Oxygen Delivery Method: Room Air O2 Sat by Pulse Oximetry: 96 - Blood Pressure Sitting Blood Pressure: 137/72 Blood Pressure Mean: 93 Blood Pressure Source: Automatic Cuff Medical Screen Scoring - Cervical Exam Dilation (cm): 3 Effacement (%): 60 Station: -2 Membranes: Intact - Uterine Contractions Resting: Soft to palpation - Assessment - Baby A Baseline FHR: 120 Heart Rate - NICHD Category: Category I (Normal) NST: Reactive Physician Notification - Physician Notified Physician Notified Date: 10/19/20 Physician Notified Time: 01:37 Physician: Ashley Santana Order Received: Yes - Notification Comment Comment: Physician states to discuss comfort measures with patient such as a warm compress, hot showers, and patient may take tylenol over the counter as directed as needed for the pain. Patient may be discharged home with instructions. Maternal Triage Index - Prompt/Priority 3 Prompt Priority 3: Yes Criteria Met for Priority 3: Patient presents to triage with back pain and pelvic pressure that she is unsure if it is related to contractions and is unable to report contraction frequency, but states the pain comes and goes. Patient denies leaking of fluid or vaginal bleeding. UA collected. Disposition - Disposition OB Disposition: Discharge to home, Written follow up instructions reviewed Discharge Date: 10/19/20 Discharge Time: 01:45 I agree with the RN Medical Screening Exam: Yes Case reviewed; plan agreed upon as documented in EMR&OBIX.: Yes Diagnosis: FALSE LABOR AT OR AFTER 37 COMPLETED WEEKS OF GESTATION
== END 2020-10-19 01:45 | disposition home or self-care (01) ==
LOC: FBPOP
PROVIDERS: ATTEND Obstetrics & Gynecology
DX: O47.1 False labor at or after 37 completed weeks of gestation (principal); Z3A.39 39 weeks gestation of pregnancy; Z87.891 Personal history of nicotine dependence
CPT/HCPCS: 59025; 81001; 99213

== ENCOUNTER 2020-10-27 02:30 | Inpatient (IN) | payer OTHER ==
[2020-10-27] MEDS ORDERED: CARBOPROST TROMETHAMINE 250 MCG/ML 1 ML AMP IM PRN (02:38)
[2020-10-27] MEDS ORDERED: TERBUTALINE 1 MG/ML VIAL SQ PRN (02:38)
[2020-10-27] MEDS ORDERED: OXYTOCIN 10 UNIT/ML 1 ML VIAL IM PRN (02:38)
[2020-10-27] MEDS ORDERED: LIDOCAINE 0.5% (PF) 5 MG/ML (50 ML SDV) SQ PRN (02:38)
[2020-10-27] MEDS ORDERED: METHYLERGONOVINE 0.2 MG/ML 1 ML AMP IM PRN (02:38)
[2020-10-27] MEDS ORDERED: AMPICILLIN 2,000 MG in SODIUM CHLORIDE 0.9% 100 ML IVPB STA (02:38)
[2020-10-27] MEDS ORDERED: LACTATED RINGERS 1,000 ML IV SCH (02:45)
[2020-10-27 03:04] VITALS: RESP 16
[2020-10-27 03:09] LABS: Basophils # (A) 0.1 k/uL (0-0.2); Basophils % (A) 1 %; Eosinophils # (A) 0.2 k/uL (0-0.7); Eosinophils % (A) 2 %; HCT 40.7 % (34.0-46.0); HGB 13.3 gm/dL (11.4-16.0); Lymphocytes # (A) 3.5 k/uL (1.0-4.8); Lymphocytes % (A) 25 %; MCH 26.5 pg (25.0-35.0); MCHC 32.5 g/dL (31.0-37.0); MCV 81.4 fL (80.0-100.0); Mean Platelet Volume 8.4; Monocytes # (A) 0.5 k/uL (0-1.0); Monocytes % (A) 4 %; Neutrophils # (A) 9.6 k/uL (1.3-7.7); Neutrophils % (A) 67 %; Platelet Count 305 k/uL (150-450); RDW 15.3 % (11.5-15.5); WBC 14.3 k/uL (3.8-10.6)
[2020-10-27] MEDS ORDERED: ROPIVACAINE 5MG/ML 20ML VIAL ONE (03:34)
[2020-10-27] MEDS ORDERED: SODIUM CHLORIDE 0.9% 100 ML BAG ONE (03:34)
[2020-10-27] MEDS ORDERED: fentaNYL (PF) 50 MCG/ML 5 ML AMP ONE (03:34)
--- NOTE | 2020-10-27 03:40 | P.HPOB ---
History of Present Illness H&P Date: 10/27/20 Chief Complaint: Contractions This patient is a 25-year-old 4 para 2 female estimated date of confinement 10/23/2020 estimated gestational age 40-4/7 weeks who presents to labor and delivery with complaints of contractions since this morning. care is per Dr. Dennison. Ears be uncomplicated with the exception of previous section for her first and plans repeat . Patient's also had a positive culture for group B strep. Cervix admission is 5-6 cm dilated thought to be in early active labor. Review of Systems Genitourinary: Reports Menstruation: Reports amenorrhea Past Medical History Past Medical History: No Reported History Additional Past Medical History / Comment(s): First delivery was a primary section for nonreassuring heart tones. Second delivery was a VBA C at 34 weeks. History of Any Multi-Drug Resistant Organisms: None Reported Past Surgical History: Section Additional Past Surgical History / Comment(s): wisdom removal Past Anesthesia/Blood Transfusion Reactions: No Reported Reaction Past Psychological History: Anxiety, Depression Smoking Status: Never smoker Past Alcohol Use History: None Reported Past Drug Use History: None Reported - Past Family History Father Family Medical History: Diabetes Mellitus Medications and Allergies Home Medications Medication Instructions Recorded Confirmed Type Pnv,Calcium 72/Iron/Folic Acid 1 tab PO DAILY 06/11/17 10/27/20 History [ Plus Tablet] Allergies Allergy/AdvReac Type Severity Reaction Status Date / Time No Known Allergies Allergy Verified 10/27/20 02:37 Exam Vital Signs Temp Pulse Resp BP 10/27/20 02:36 97.6 F 97 16 137/80 Intake and Output 10/26/20 10/26/20 10/27/20 14:59 22:59 06:59 Other: Weight 114.759 kg - OBG Physical Exam Abdomen: bowel sounds normal, no diffuse tenderness, no bruit present, no guarding noted, no hepatomegaly, no splenomegaly, no mass Vulva: both: normal Vagina: normal moisture, no discharge Cervix: no lesion (Cervix per the RN is 5-6 cm dilated), no discharge Uterus: enlarged Results labs show she is A positive, rubella immune, RPR nonreactive, HIV is negative, hepatitis B is negative, group B strep was negative, most recent ultrasound on September 20 showed 5 lbs. 9 oz. which is the 55th percentile. Group B strep was positive Result Diagrams: 10/27/20 02:32 Abnormal Lab Results - Last 24 Hours (Table) 10/27/20 Range/Units 02:32 WBC 14.3 H (3.8-10.6) k/uL Neutrophils # 9.6 H (1.3-7.7) k/uL Assessment and Plan Assessment: This is a 25-year-old 4 para 2 female 40-4/7 weeks gestation with early labor. Patient's previous section with successful following . Patient desires repeat and has been discussed the benefits and risks of this with Dr. Dennison. Patient is a positive strep culture therefore at this time her administer IV antibiotics and anticipate vaginal delivery. (1) 41 weeks gestation of Current Visit: Yes Status: Acute Code(s): Z3A.41 - 41 WEEKS GESTATION OF SNOMED Code(s): 24965875 (2) Previous delivery affecting Current Visit: Yes Status: Acute Code(s): O34.219 - MATERNAL CARE FOR UNSP TYPE SCAR FROM PREVIOUS DEL SNOMED Code(s): 358693708 (3) Group B streptococcal carriage complicating Current Visit: Yes Status: Acute Code(s): O99.820 - STREPTOCOCCUS B CARRIER STATE COMPLICATING SNOMED Code(s): 061462933633843 (4) Normal labor Current Visit: No Status: Resolved Code(s): O80 - ENCOUNTER FOR FULL-TERM UNCOMPLICATED DELIVERY; Z37.9 - OUTCOME OF DELIVERY, UNSPECIFIED SNOMED Code(s): 17987907
[2020-10-27] MEDS ORDERED: AMPICILLIN 1,000 MG in SODIUM CHLORIDE 0.9% 50 ML IVPB SCH (07:00)
[2020-10-27] MEDS ORDERED: BENZOCAINE/MENTHOL SPRAY 1 GM/SPRAY AEROSOL TOPICAL PRN (08:57)
[2020-10-27] MEDS ORDERED: LANOLIN CREAM 5 GM TUBE TOPICAL PRN (08:57)
[2020-10-27] MEDS ORDERED: ACETAMINOPHEN TAB 325 MG TAB PO PRN (08:57)
[2020-10-27] MEDS ORDERED: IBUPROFEN 600 MG TAB PO PRN (08:57)
[2020-10-27] MEDS ORDERED: diphenhydrAMINE 25 MG CAP PO PRN (08:57)
[2020-10-27] MEDS ORDERED: diphenhydrAMINE 50 MG CAP PO PRN (08:57)
[2020-10-27] MEDS ORDERED: SIMETHICONE 80 MG CHEWABLE PO PRN (08:57)
[2020-10-27] MEDS ORDERED: OXYTOCIN 30 UNITS/500 ML NS 30 UNIT in SALINE 1 500ML.BAG IV SCH (09:00)
--- NOTE | 2020-10-27 13:22 | P.PROBDLV ---
Vaginal Delivery Note - . Vaginal Delivery Note: This patient is a 25-year-old 4 para 2 female estimated date of confinement 10/23/2020 estimated gestational age 40-4/7 weeks who presents to labor and delivery with complaints of contractions since this morning. care is per Dr. Dennison. appears be uncomplicated with the exception of previous section for her first and plans repeat . Patient's also had a positive culture for group B strep. Cervix admission is 5-6 cm dilated thought to be in early active labor. She is admitted to labor and delivery and Y arrived to the hospital she was 8 cm dilated, 90% effaced, and -1 station. She was rui every 1-2 minutes and heart tones 140 with moderate variability and reactive. Amniotomy performed at 7:13 AM and clear fluid noted. She pushed, delivered a viable male over intact perineum under epidural anesthesia at 7:34 AM. Head delivered OA, anterior shoulder delivered gentle downward guidance of the posterior shoulder and rest of body. Nose and mouth bulb suctioned, second to cut, placed mother's abdomen. Apgars 8, 9, weight 6 lbs. 4 oz. Placenta delivered spontaneous, intact with three-vessel cord at 7:36 AM. Vagina, cervix, perineum inspected. Right labial laceration was repaired with 3-0 Vicryl. Estimated blood loss 200 mL. Mother and baby in stable condition.
[2020-10-28 05:03] LABS: Basophils # (A) 0.1 k/uL (0-0.2); Basophils % (A) 0 %; Eosinophils # (A) 0.3 k/uL (0-0.7); Eosinophils % (A) 2 %; HGB 12.1 gm/dL (11.4-16.0); Lymphocytes # (A) 4.6 k/uL (1.0-4.8); Lymphocytes % (A) 32 %; MCH 26.2 pg (25.0-35.0); MCHC 31.7 g/dL (31.0-37.0); MCV 82.5 fL (80.0-100.0); Mean Platelet Volume 9.3; Monocytes # (A) 0.5 k/uL (0-1.0); Monocytes % (A) 3 %; Neutrophils # (A) 8.9 k/uL (1.3-7.7); Neutrophils % (A) 61 %; Platelet Count 264 k/uL (150-450); RBC 4.61 m/uL (3.80-5.40); RDW 15.5 % (11.5-15.5); WBC 14.6 k/uL (3.8-10.6)
[2020-10-28 09:55] VITALS: BP 112/75; PULSE 66; TEMP 98.1
[2020-10-28] MEDS: SENNOSIDES-DOCUSATE SODIUM 1 EACH TAB PO SCH (09:56)
--- NOTE | 2020-10-28 11:02 | P.DS ---
Providers Date of admission: 10/27/20 02:30 Expected date of discharge: 10/28/20 Attending physician: Lee Ann Dennison Primary care physician: Stated None Hospital Course: This is a 25-year-old female 4 para 2 at 40-4/7 weeks who presented in active labor and delivered vaginally via vaginal after a viable male infant with scores of 8 at 1 minute and 9 at 5 minutes and infant weight of 6 lbs. 4 oz. on 10/27/2020. Her course has been uncomplicated. Lochia is decreasing. She is breast-feeding. Vital signs are stable. Abdomen is soft with fundus firm and nontender. Extremities show negative Homans. Impression is status post vaginal after , day #1. Plan is to discharge home today. Routine instructions are given. She declines a need for any pain medication. She is advised follow-up in the office with Dr. Dennison in 1 week. She is advised to call the office if she has any further questions or concerns prior to her appointment time. Procedures: Vaginal after section with delivery of a viable male on 10/27/2020 Patient Condition at Discharge: Stable Plan - Discharge Summary New Discharge Prescriptions: Continue Pnv,Calcium 72/Iron/Folic Acid [ Plus Tablet] 1 tab PO DAILY Discharge Medication List Pnv,Calcium 72/Iron/Folic Acid [ Plus Tablet] 1 tab PO DAILY 06/11/17 [History] Follow up Appointment(s)/Referral(s): Lee Ann Dennison DO [Doctor of Osteopathic Medicine] - 12/07/20 3:45 pm Discharge Disposition: HOME SELF-CARE
== END 2020-10-28 14:38 | disposition home or self-care (01) | DRG 807 ==
LOC: 4FBP 02:30
PROVIDERS: ADMIT Obstetrics & Gynecology; ATTEND Obstetrics & Gynecology
PROC: 10E0XZZ Delivery of Products of Conception, External Approach (ICD-10-PCS; principal; 2020-10-27)
PROC: 0HQ9XZZ Repair Perineum Skin, External Approach (ICD-10-PCS; 2020-10-27)
DX: O48.0 Post-term pregnancy (principal); Z37.0 Single live birth; O34.219 Maternal care for unspecified type scar from previous cesarean delivery; O99.824 Streptococcus B carrier state complicating childbirth; O70.0 First degree perineal laceration during delivery; Z3A.40 40 weeks gestation of pregnancy; Z83.3 Family history of diabetes mellitus
CPT/HCPCS: 85025; 86850; 86900; 86901

== ENCOUNTER 2021-11-11 12:14 | Emergency (ER) | payer OTHER ==
[2021-11-11 12:43] VITALS: BP 120/70; PULSE 67; RESP 20; TEMP 98.1
[2021-11-11] MEDS ORDERED: FAMOTIDINE 20 MG TAB PO STA (15:55)
[2021-11-11] MEDS ORDERED: MAG HYDROX/AL HYDROX/SIMETH 30 ML, HYOSCYAMINE ELIXIR 10 ML, LIDOCAINE VISCOUS 2% 10 ML PO STA ×3 (15:55)
--- NOTE | 2021-11-11 16:31 | ED ---
GI Bleed HPI - General Chief complaint: GI Bleed Stated complaint: vomiting blood Time Seen by Provider: 11/11/21 15:54 Source: patient Mode of arrival: ambulatory Limitations: no limitations - History of Present Illness Initial comments: This patient is a 26-year-old woman who presents to have evaluation after she had some hematemesis. The patient states that she had been at work, and then had an episode of vomiting associated with a small amount of red blood. She states it looked like the bottom of a medicine cup. Patient denies any abdominal pain. No symptoms suggestive of anemia. Patient states she has previously vomited blood but that she usually after she has had some episodes of retching or dry heaves. She did not have that preceding today's episode. She states that her employer wanted her to come and be seen otherwise she probably would not have come in. complaint: blood streaked emesis -: hour(s) Radiation: none Quality: painless Consistency: now resolved Improves with: none Worsens with: none Context: history of GI bleed Associated Symptoms: denies other symptoms - Related Data Previous Rx's Medication Instructions Recorded Famotidine [Pepcid] 20 mg PO BID #14 tablet 11/11/21 Allergies Allergy/AdvReac Type Severity Reaction Status Date / Time No Known Allergies Allergy Verified 11/11/21 17:06 Review of Systems ROS Statement: Those systems with pertinent positive or pertinent negative responses have been documented in the HPI. ROS Other: All systems not noted in ROS Statement are negative. Constitutional: Denies: fever, chills, weakness Respiratory: Denies: cough, dyspnea Cardiovascular: Denies: chest pain, palpitations, syncope Gastrointestinal: Reports: vomiting, hematemesis. Denies: abdominal pain, nausea, diarrhea, melena, hematochezia Genitourinary: Denies: dysuria, hematuria Musculoskeletal: Denies: back pain Skin: Denies: rash Neurological: Denies: headache, weakness Hematological/Lymphatic: Denies: easy bleeding Past Medical History Past Medical History: No Reported History Additional Past Medical History / Comment(s): First delivery was a primary section for nonreassuring heart tones. Second delivery was a at 34 weeks. History of Any Multi-Drug Resistant Organisms: None Reported Past Surgical History: Section Additional Past Surgical History / Comment(s): wisdom removal Past Anesthesia/Blood Transfusion Reactions: No Reported Reaction Past Psychological History: Anxiety, Depression Smoking Status: Never smoker Past Alcohol Use History: Occasional Past Drug Use History: Marijuana - Past Family History Father Family Medical History: Diabetes Mellitus General Exam Limitations: no limitations General appearance: alert, in no apparent distress Head exam: Present: atraumatic, normocephalic Eye exam: Present: normal appearance. Absent: scleral icterus, conjunctival injection ENT exam: Present: normal oropharynx Neck exam: Present: normal inspection Respiratory exam: Present: normal lung sounds bilaterally. Absent: respiratory distress, wheezes, rales, rhonchi, stridor Cardiovascular Exam: Present: regular rate, normal rhythm, normal heart sounds. Absent: systolic murmur, diastolic murmur, rubs, gallop GI/Abdominal exam: Present: soft. Absent: distended, tenderness, guarding, rebound, rigid, mass Extremities exam: Present: normal inspection, normal capillary refill. Absent: pedal edema, calf tenderness Back exam: Present: normal inspection. Absent: CVA tenderness (R), CVA tenderness (L) Neurological exam: Present: alert Skin exam: Present: warm, dry, intact, normal color. Absent: rash Course Vital Signs 11/11/21 12:40 Temperature 98.1 F Pulse Rate 67 Respiratory 20 Rate Blood Pressure 120/70 O2 Sat by Pulse 100 Oximetry Medical Decision Making - Lab Data Result diagrams: 11/11/21 16:25 11/11/21 16:25 Lab Results 11/11/21 11/11/21 11/11/21 Range/Units 16:25 16:25 16:25 WBC 11.0 H (3.8-10.6) k/uL RBC 5.33 (3.80-5.40) m/uL Hgb 14.5 (11.4-16.0) gm/dL Hct 44.6 (34.0-46.0) % MCV 83.6 (80.0-100.0) fL MCH 27.2 (25.0-35.0) pg MCHC 32.6 (31.0-37.0) g/dL RDW 14.4 (11.5-15.5) % Plt Count 304 (150-450) k/uL MPV 7.9 Neutrophils % 66 % Lymphocytes % 27 % Monocytes % 3 % Eosinophils % 2 % Basophils % 1 % Neutrophils # 7.3 (1.3-7.7) k/uL Lymphocytes # 3.0 (1.0-4.8) k/uL Monocytes # 0.3 (0-1.0) k/uL Eosinophils # 0.2 (0-0.7) k/uL Basophils # 0.1 (0-0.2) k/uL APTT 26.0 (22.0-30.0) sec Sodium 138 (137-145) mmol/L Potassium 5.1 (3.5-5.1) mmol/L Chloride 106 (98-107) mmol/L Carbon Dioxide 21 L (22-30) mmol/L Anion Gap 11 mmol/L BUN 10 (7-17) mg/dL Creatinine 0.70 (0.52-1.04) mg/dL Est GFR (CKD-EPI)AfAm >90 (>60 ml/min/1.73 sqM) Est GFR (CKD-EPI)NonAf >90 (>60 ml/min/1.73 sqM) Glucose 84 (74-99) mg/dL Plasma Lactic Acid René (0.7-2.0) mmol/L Calcium 9.0 (8.4-10.2) mg/dL Total Bilirubin 1.1 (0.2-1.3) mg/dL AST 51 H (14-36) U/L ALT 28 (4-34) U/L Alkaline Phosphatase 104 (38-126) U/L Troponin I (0.000-0.034) ng/mL Total Protein 7.6 (6.3-8.2) g/dL Albumin 4.5 (3.5-5.0) g/dL Amylase 44 (30-110) U/L Lipase 40 (23-300) U/L 11/11/21 11/11/21 Range/Units 16:25 16:25 WBC (3.8-10.6) k/uL RBC (3.80-5.40) m/uL Hgb (11.4-16.0) gm/dL Hct (34.0-46.0) % MCV (80.0-100.0) fL MCH (25.0-35.0) pg MCHC (31.0-37.0) g/dL RDW (11.5-15.5) % Plt Count (150-450) k/uL MPV Neutrophils % % Lymphocytes % % Monocytes % % Eosinophils % % Basophils % % Neutrophils # (1.3-7.7) k/uL Lymphocytes # (1.0-4.8) k/uL Monocytes # (0-1.0) k/uL Eosinophils # (0-0.7) k/uL Basophils # (0-0.2) k/uL APTT (22.0-30.0) sec Sodium (137-145) mmol/L Potassium (3.5-5.1) mmol/L Chloride (98-107) mmol/L Carbon Dioxide (22-30) mmol/L Anion Gap mmol/L BUN (7-17) mg/dL Creatinine (0.52-1.04) mg/dL Est GFR (CKD-EPI)AfAm (>60 ml/min/1.73 sqM) Est GFR (CKD-EPI)NonAf (>60 ml/min/1.73 sqM) Glucose (74-99) mg/dL Plasma Lactic Acid René 1.1 (0.7-2.0) mmol/L Calcium (8.4-10.2) mg/dL Total Bilirubin (0.2-1.3) mg/dL AST (14-36) U/L ALT (4-34) U/L Alkaline Phosphatase (38-126) U/L Troponin I 0.016 (0.000-0.034) ng/mL Total Protein (6.3-8.2) g/dL Albumin (3.5-5.0) g/dL Amylase (30-110) U/L Lipase (23-300) U/L Disposition Clinical Impression: Hematemesis Disposition: HOME SELF-CARE Condition: Good Instructions (If sedation given, give patient instructions): Hematemesis (ED) Prescriptions: Famotidine [Pepcid] 20 mg PO BID #14 tablet Is patient prescribed a controlled substance at d/c from ED?: No Referrals: None,Stated [Primary Care Provider] - 1-2 days
[2021-11-11 16:33] LABS: Basophils # (A) 0.1 k/uL (0-0.2); Basophils % (A) 1 %; Eosinophils # (A) 0.2 k/uL (0-0.7); Eosinophils % (A) 2 %; HCT 44.6 % (34.0-46.0); HGB 14.5 gm/dL (11.4-16.0); Lymphocytes % (A) 27 %; MCH 27.2 pg (25.0-35.0); MCHC 32.6 g/dL (31.0-37.0); MCV 83.6 fL (80.0-100.0); Mean Platelet Volume 7.9; Monocytes # (A) 0.3 k/uL (0-1.0); Monocytes % (A) 3 %; Neutrophils # (A) 7.3 k/uL (1.3-7.7); Neutrophils % (A) 66 %; Platelet Count 304 k/uL (150-450); RBC 5.33 m/uL (3.80-5.40); RDW 14.4 % (11.5-15.5)
[2021-11-11 16:46] LABS: ALT 28 U/L (4-34); AST 51 U/L (14-36); African American GFR (CKD) >90 (>60 ml/min/1.73 sqM); Albumin 4.5 g/dL (3.5-5.0); Alkaline Phosphatase 104 U/L (38-126); Amylase 44 U/L (30-110); Anion Gap 11 mmol/L; Blood Urea Nitrogen 10 mg/dL (7-17); Carbon Dioxide 21 mmol/L (22-30); Chloride 106 mmol/L (98-107); Glucose 84 mg/dL (74-99); Lipase 40 U/L (23-300); Non-African American GFR(CKD) >90 (>60 ml/min/1.73 sqM); Sodium 138 mmol/L (137-145); Total Bilirubin 1.1 mg/dL (0.2-1.3); Total Protein 7.6 g/dL (6.3-8.2)
[2021-11-11 17:11] LABS: Potassium 5.1 mmol/L (3.5-5.1)
== END 2021-11-11 17:45 | disposition home or self-care (01) ==
LOC: EC 12:14
DX: K92.0 Hematemesis (principal)
CPT/HCPCS: 36415; 80053; 82150; 83605; 83690; 84484; 85025; 85730; 99284